=== PATIENT | male | born 1940 | race Caucasian/White ===

== ENCOUNTER → 2019-03-26 | Outpatient (CLI) | payer MEDICARE ==
[~2019-03-26] MED LIST: ASPI-1197 PO; PIND10TA2 PO; PRAV40TA3 PO; TERA5CAP4 PO
== END | disposition home or self-care (01) ==
LOC: SHCH 11:22
PROVIDERS: ATTEND Internal Medicine Cardiovascular Disease
DX: I35.0 Nonrheumatic aortic (valve) stenosis (principal)
CPT/HCPCS: 93306; 93356

== ENCOUNTER → 2019-03-29 | Outpatient (CLI) | payer MEDICARE ==
[~2019-03-29] VITALS: Ht 172.7 cm; Wt 118.8 kg
[~2019-03-29] MED LIST changes: +REGADENOSON 0.4 MG/5 ML PF SYG IVP SCH
== END | disposition home or self-care (01) ==
LOC: SHCH 07:53
PROVIDERS: ATTEND Internal Medicine Cardiovascular Disease
DX: I25.10 Atherosclerotic heart disease of native coronary artery without angina pectoris (principal); Z79.82 Long term (current) use of aspirin; Z79.899 Other long term (current) drug therapy; Z87.891 Personal history of nicotine dependence; Z82.49 Family history of ischemic heart disease and other diseases of the circulatory system; Z82.3 Family history of stroke
CPT/HCPCS: 78452; 93017; 96374; A9500; J2785

== ENCOUNTER 2019-08-27 13:21 | Inpatient (IN) | payer MEDICARE ==
[~2019-08-27] VITALS: Ht 172.7 cm; Wt 113.4 kg
[~2019-08-27 13:21] MED LIST changes: -REGADENOSON 0.4 MG/5 ML PF SYG IVP SCH
[2019-08-27 14:23] LABS: BASOPHILS % (AUTO) 0.1 % (0.0-5.0); HEMATOCRIT 43.3 % (42-54); LYMPHOCYTES % (AUTO) 10.8 % (21.0-51.0); MEAN CORPUSCULAR HEMOGLOBIN 30.7 pg (27.0-33.0); MEAN CORPUSCULAR HGB CONC 33.3 g/dL (32.0-36.0); MEAN CORPUSCULAR VOLUME 92.3 fL (79-99); MONOCYTES % (AUTO) 4.4 % (3.0-13.0); PLATELET COUNT (AUTO) 165 K/uL (130-400); RED BLOOD CELL COUNT(AUTO) 4.69 MIL/uL (4.50-6.20); RED CELL DISTRIBUTION WIDTH 15.2 % (11.0-15.5); WHITE BLOOD COUNT (AUTO) 8.2 K/uL (4.8-10.8)
[2019-08-27 14:37] LABS: CREATININE 1.3 mg/dL (0.5-1.5); POTASSIUM 4.2 mmol/L (3.5-5.1)
[2019-08-27 14:46] LABS: INR 1.03 (0.85-1.15); PARTIAL THROMBOPLASTIN TIME 29.6 SEC (26.3-35.5); PROTHROMBIN TIME 11.1 SEC (9.6-11.6)
[2019-08-27 14:50] LABS: RAPID GROUP A STREP NEGATIVE (NEGATIVE)
[2019-08-27 14:52] LABS: B-TYPE NATRIURETIC PEPTIDE 52 pg/mL (0-100)
[2019-08-27 14:58] LABS: ALBUMIN 2.8 g/dL (3.5-5.0); BILIRUBIN,TOTAL 1.1 mg/dL (0.2-1.0); TOTAL PROTEIN, SERUM 7.1 g/dL (6.0-8.3)
[2019-08-27] MEDS ORDERED: LACTATED RINGERS 1000ML 1,000 ML IV SCH (16:45)
[2019-08-27] MEDS ORDERED: CEFTRIAXONE SODIUM 1 GM IVP SCH (16:45)
[2019-08-27] MEDS ORDERED: PHARMACY COMMUNICATION MISC SCH (17:15)
[2019-08-27] MEDS ORDERED: DOXYCYCLINE HYCLATE 100 MG TABLET PO ONE ×2 (17:30→20:09)
[2019-08-27] MEDS ORDERED: METHYLPREDNISOLONE SOD SUCC 40MG/ML 1ML ONE ×2 (17:31→20:09)
[2019-08-27 17:39] LABS: THYROID STIMULATING HORMONE 1.6 uIU/mL (0.36-3.74)
[2019-08-27 18:00] LABS: APPEARANCE,URINE Clear (CLEAR); BILIRUBIN,URINE Small (NEGATIVE); COLOR,URINE Dark Yellow (YELLOW); GLUCOSE, URINE (UA) Negative (NEGATIVE); KETONES,URINE 15 mg/dL (NEGATIVE); LEUKOCYTE ESTERASE ,URINE Negative (NEGATIVE); NITRATE,URINE Negative (NEGATIVE); OCCULT BLOOD,URINE Moderate (NEGATIVE); PH,URINE 5.5 (5.0-8.0); PROTEIN,URINE POS 2+ mg/dL (NEGATIVE)
[2019-08-27 18:07] LABS: BACTERIA,URINE Few /HPF (None Seen); MUCUS,URINE Rare LPF (None Seen); SQUAMOUS EPITHELIAL CELL,UR Rare /HPF (0-2)
[2019-08-27 18:08] LABS: COARSE GRANULAR CASTS,URINE 0-2 /LPF (None Seen)
[2019-08-27] MEDS ORDERED: CEFTRIAXONE SODIUM 1 GM ONE (18:57)
[2019-08-27] MEDS ORDERED: SODIUM CHLORIDE 0.9% 100 ML IV ONE (18:58)
[2019-08-27] MEDS ORDERED: DOXYCYCLINE HYCLATE 100 MG TABLET PO SCH (21:00)
[2019-08-27] MEDS ORDERED: METHYLPREDNISOLONE SOD SUCC 40MG/ML 1ML IVP SCH (21:00)
[2019-08-27] MEDS ORDERED: REMDESIVIR (INVESTIGATIONAL) 200 MG/250 ML NS IV ONE (21:00)
[2019-08-27] MEDS: ENOXAPARIN SODIUM 120 MG/0.8ML SQ SCH (21:40)
[2019-08-28 08:09] LABS: HEMATOCRIT 39.3 % (42-54); MEAN CORPUSCULAR HEMOGLOBIN 31.4 pg (27.0-33.0); MEAN CORPUSCULAR HGB CONC 33.1 g/dL (32.0-36.0); MEAN CORPUSCULAR VOLUME 94.9 fL (79-99); PLATELET COUNT (AUTO) 129 K/uL (130-400); RED BLOOD CELL COUNT(AUTO) 4.14 MIL/uL (4.50-6.20); RED CELL DISTRIBUTION WIDTH 15.7 % (11.0-15.5); WHITE BLOOD COUNT (AUTO) 5.8 K/uL (4.8-10.8)
[2019-08-28] MEDS ORDERED: DOXYCYCLINE HYCLATE 100 MG TABLET PO ONE ×2 (08:39→21:16)
[2019-08-28] MEDS ORDERED: CEFTRIAXONE SODIUM 1 GM ONE ×2 (08:39→21:16)
[2019-08-28] MEDS ORDERED: ZINC SULFATE 220 CAPSULE ONE (08:39)
[2019-08-28] MEDS ORDERED: ENOXAPARIN SODIUM 40 MG/0.4 ML SYRINGE SQ SCH (09:00)
[2019-08-28] MEDS ORDERED: FAMOTIDINE 20MG TAB 20 MG TAB PO SCH (09:00)
--- NOTE | 2019-08-28 09:18 | NUR ---
SPOKE TO SPOUSE FOR DCP LIVES WITH SPOUSE TARA, PREVIOUSLY, INDEPENDENT, ACTIVE, DRIVES, EMPLOYED, NO DME SERVICES, SPOUSE STATES SHE HAD COVID 2 MONTHS AGO AND RECOVERED EASILY, BUT BEHZAD WAS TESTED 11 DAYS AGO AND HAS NOT DONE SO WELL, HX OF WILBERTO, HAD A SLEEP STUDY AND WAS RECOMMMEDED TO HAVE CPAPA BUT DECLINED EMPHATICALLY NO NEBULIZER OR INHALE DCP IS HOME, SPOUSE TO TRANSPORT Addendum: 08/28/19 at 1405 by ARNALDO HURLEY RN CM Amended: Links added.
[2019-08-28 09:19] LABS: BASOPHILS % (AUTO) 0.2 % (0.0-5.0); LYMPHOCYTES % (AUTO) 8.1 % (21.0-51.0); MONOCYTES % (AUTO) 1.8 % (3.0-13.0); NEUTROPHILS % (AUTO) 88.8 % (40.0-77.0)
[2019-08-28] MEDS ORDERED: ZINC SULFATE 220 CAPSULE PO SCH (12:00)
[2019-08-28] MEDS: ENOXAPARIN SODIUM 120 MG/0.8ML SQ SCH (20:00)
[2019-08-28] MEDS: REMDESIVIR (INVESTIGATIONAL) 100 MG/250ML NS IV SCH (21:00)
[2019-08-28] MEDS ORDERED: ENOXAPARIN SODIUM 40 MG/0.4 ML SYRINGE SQ ONE (21:16)
[2019-08-29] MEDS ORDERED: ENOXAPARIN SODIUM 80 MG/0.8 ML SQ ONE (01:39)
[2019-08-29] MEDS ORDERED: LORAZEPAM 2 MG/ML 1 ML VIAL ONE ×2 (06:31→10:41)
[2019-08-29 06:43] LABS: HEMATOCRIT 38.5 % (42-54); MEAN CORPUSCULAR HGB CONC 33.8 g/dL (32.0-36.0); MEAN CORPUSCULAR VOLUME 91.7 fL (79-99); PLATELET COUNT (AUTO) 216 K/uL (130-400); RED CELL DISTRIBUTION WIDTH 15.6 % (11.0-15.5); WHITE BLOOD COUNT (AUTO) 17.1 K/uL (4.8-10.8)
[2019-08-29 06:58] LABS: ALBUMIN 2.4 g/dL (3.5-5.0); BILIRUBIN,TOTAL 0.9 mg/dL (0.2-1.0); CREATININE 1.3 mg/dL (0.5-1.5); CRP QUANTITATIVE 169.9 mg/L (0.00-9.0); POTASSIUM 4.3 mmol/L (3.5-5.1); TOTAL PROTEIN, SERUM 6.2 g/dL (6.0-8.3)
[2019-08-29 07:28] LABS: LYMPHOCYTES % (MANUAL) 6 % (22-44); MAN.DIFF COMMENT-IMPRESSION MANUAL DIFFERENTIAL; MONOCYTES % (MANUAL) 4 % (2-9); PLATELET MORPHOLOGY COMMENT ADEQUATE; SEGMENTED NEUTROPHILS % 90 % (40-70)
[2019-08-29 08:00] VITALS: BP 145/63
[2019-08-29] MEDS: FUROSEMIDE 10 MG/ML 2ML VIAL IV SCH ×2 (09:45→21:40)
[2019-08-29] MEDS ORDERED: FUROSEMIDE 10 MG/ML 2ML VIAL ONE (10:38)
[2019-08-29] MEDS ORDERED: LORAZEPAM 2 MG/ML 1 ML VIAL IVP SCH (10:45)
[2019-08-29] MEDS: INSULIN HUMULIN R 100 UNIT/ML 3ML SQ SCH ×3 (11:30→20:39)
[2019-08-29 12:00] VITALS: BP 139/80
--- NOTE | 2019-08-29 13:13 | NUR ---
CALL RECD FROM SPOUSE STATES SHE WAS CALLED AT 0630 THS MORNING TO BE TOLD HER NEEDED A BREATHING TUBE BUT WAS DECLINING THAT, AND HE WOULD NOT LAST WITHOUT IT. VERY TEARFUL. STATES SHE HAS BEEN TRYING TO GET THROUGH SINCE THEN AND HIS PHONE GOES TO [employer] AND NO ONE ANSWERS HER. UPSET. NUMBER OF NEW ROOM GIVEN, [phone] AND NURSE SUNSHINE, AND PHONE NUMBER FOR NURSES STATION. SPOUSE STATES WILL TRY TO GET THROUGH
[2019-08-29] MEDS: METHYLPREDNISOLONE SOD SUCC 125MG/2ML VIAL IVP SCH ×2 (13:33→21:40)
[2019-08-29] MEDS: PHARMACY COMMUNICATION MISC SCH ×2 (13:35→16:30)
[2019-08-29 13:53] VITALS: BP 159/76
[2019-08-29 16:00] VITALS: BP 174/87
[2019-08-29] MEDS ORDERED: CEFTRIAXONE SODIUM 1 GM IVP SCH (20:00)
[2019-08-29 21:17] VITALS: BP 146/91
[2019-08-29] MEDS: REMDESIVIR (INVESTIGATIONAL) 100 MG/250ML NS IV SCH (21:40)
[2019-08-29] MEDS: ENOXAPARIN SODIUM 120 MG/0.8ML SQ SCH (21:40)
[2019-08-29] MEDS ORDERED: ACETAMINOPHEN 120 MG SUPPOSITORY RC PRN (23:45)
[2019-08-30] MEDS ORDERED: ACETAMINOPHEN 650 MG SUPPOSITORY RC ONE
[2019-08-30 00:30] VITALS: BP 161/77
[2019-08-30 04:46] VITALS: BP 144/80
--- NOTE | 2019-08-30 05:18 | NUR ---
PT 517 PT AND PRONOUNCED BY PEARL RESTORER REGINA, SPOUSE TARA HURT,MID LEVEL BETSY MCADAMS AND LESLIE NOTIFIED. CERTIFICATE COMPLETE. POST MORTEM CARE COMPLETE. PT TRANSFERRED DOWN TO [facility] [place].
--- NOTE | 2019-08-30 05:40 | NUR ---
spoke with jud cain about patient's expiration () and explained that his was pronounced at 05:18. he verbalized understanding.
== END 2019-08-30 05:18 | disposition expired | DRG 871 ==
LOC: EDH 13:21 → EDHIP 15:58 → 4DH 08-29 12:01
PROVIDERS: ADMIT Internal Medicine; ATTEND Internal Medicine
PROC: 5A09357 Assistance with Respiratory Ventilation, Less than 24 Consecutive Hours, Continuous Positive Airway Pressure (ICD-10-PCS; principal; 2019-08-29)
DX: A41.89 Other specified sepsis (principal); J12.89 Other viral pneumonia; J96.01 Acute respiratory failure with hypoxia; U07.1 COVID-19; B17.9 Acute viral hepatitis, unspecified; E87.2 Acidosis; G93.40 Encephalopathy, unspecified; M62.82 Rhabdomyolysis; A08.39 Other viral enteritis; E66.9 Obesity, unspecified; E78.5 Hyperlipidemia, unspecified; E86.0 Dehydration; I10 Essential (primary) hypertension; Z66 Do not resuscitate; Z74.01 Bed confinement status; Z82.0 Family history of epilepsy and other diseases of the nervous system; Z82.3 Family history of stroke; Z82.49 Family history of ischemic heart disease and other diseases of the circulatory system; Z82.5 Family history of asthma and other chronic lower respiratory diseases; Z83.3 Family history of diabetes mellitus; Z87.891 Personal history of nicotine dependence
CPT/HCPCS: 36415; 71045; 80053; 81001; 82550; 82728; 82948; 83605; 83615; 83880; 84145; 84443; 84484; 85025; 85378; 85610; 85730; 86140; 86850; 86900; 86901; 87040; 87804; 87880; 93005; 93970; 94660; 99291; G0378; J0696; J1650; J1940; J2060; J2920; J2930; J7050